=== PATIENT | female | born 1995 | race Two or more races ===

== ENCOUNTER 2024-02-25 12:23 | Observation (INO) | payer MEDICAID ==
[~2024-02-25] VITALS: Ht 165.1 cm; Wt 94.8 kg
[2024-02-25 13:06] LABS: Urine Bacteria FEW /hpf (None Seen); Urine Blood Negative /uL (Negative); Urine Clarity Hazy (Clear); Urine Color Yellow (Yellow); Urine Mucus FEW (None Seen); Urine Protein, UAD TRACE (Negative); Urine Specific Gravity 1.019 (1.001-1.035); Urine Urobilinogen Normal (Negative); Urine WBC 5 /hpf (0 - 5)
[2024-02-25 13:19] LABS: Amphetamine Screen, Urine Neg (NEGATIVE)
[2024-02-25 13:20] LABS: Barbiturate Scree,Urine Neg (NEGATIVE); Benzodiazephine Screen, Urine Neg (NEGATIVE); Cocaine Screen, Urine Neg (NEGATIVE); Opiate Scree,Urine Neg (NEGATIVE); Phencyclidine Screen, Urine Neg (NEGATIVE)
[2024-02-25 13:21] LABS: Cannabinoid Screen, Urine Neg (NEGATIVE)
== END 2024-02-25 13:56 | disposition home or self-care (01) ==
LOC: LDRP 12:23 → UNDOADMOB 12:23 → LDRP 12:28 → UNDODISOB 13:56
PROVIDERS: ADMIT Obstetrics & Gynecology; ATTEND Obstetrics & Gynecology
DX: O47.03 False labor before 37 completed weeks of gestation, third trimester (principal); Z3A.36 36 weeks gestation of pregnancy; Z79.899 Other long term (current) drug therapy
CPT/HCPCS: 59025; 80307; 81001; 81002; 94760; G0378